=== PATIENT | male | born 1980 | race Caucasian/White ===

== ENCOUNTER 2017-12-12 23:10 | Emergency (ER) | payer OTHER ==
[2017-12-12 23:19] VITALS: BP 112/72; PULSE 114; TEMP 98; BMI 20.7
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
== END 2017-12-13 01:21 | disposition home or self-care (01) ==
LOC: JER 23:10
DX: F11.20 Opioid dependence, uncomplicated (principal); F14.20 Cocaine dependence, uncomplicated
CPT/HCPCS: 99281-25

== ENCOUNTER 2017-12-13 02:20 | Inpatient (IN) | payer OTHER ==
[2017-12-13 03:38] VITALS: BMI 20.9
--- NOTE | 2017-12-13 03:54 | HP ---
COWS - Scale Resting Pulse: 1= [place] 81-100 Sweatin=Flushed/Facial Moisture Restless Observation: 1= Difficult to Sit Still Pupil Size: 1= Pupils >than Normal Bone or Joint Aches: 4=Acute Joint/Muscle Pain Runny Nose/ Eye Tearin= None GI Upset > 30mins: 1= Stomach Cramp Tremor Observation: 2= Slight Tremor Visible Yawning Observation: 0= None Anxiety or Irritability: 4=Extreme Anxiety Goose Flesh Skin: 0=Smooth Skin COWS Score: 16 Admission [facility] Chief Complaint: Opiate withdrawal symptoms Allergies/Adverse Reactions: Allergies Allergy/AdvReac Type Severity Reaction Status Date / Time Cephalosporins Allergy Verified 12/13/17 03:31 History of Present Illness: 37 years old male with 10 years history of oxycodone dependence is seeking admission to detox. Patient reports that this is his first admission to detox and [facility]. He has medical history of diverticulitis, osteoarthritis, depression and anxiety. He denies suicide attempt and suicidal ideation at this time. He has left BKA with prothesis ankle bracelet on the left leg for alcohol probation Exam Limitations: No Limitations - Ebola screening Have you traveled outside of the country in the last 21 days: No Have you had contact with anyone from an Ebola affected area: No Have you been sick,other than usual withdrawal symptoms: No Do you have a fever: No - Review of Systems Constitutional: Chills, Loss of Appetite, Malaise, Night Sweats, Changes in sleep, Unintentional Wgt. Loss (reports 50lbs weight loss last 6 months) EENT: reports: No Symptoms Reported Respiratory: reports: No Symptoms reported Cardiac: reports: No Symptoms Reported GI: reports: Poor Appetite, Poor Fluid Intake, Abdominal cramping : reports: No Symptoms Reported Musculoskeletal: reports: Muscle Pain, Muscle Weakness Integumentary: reports: Dryness Neuro: reports: Tremors, Weakness Endocrine: reports: No Symptoms Reported Hematology: reports: No Symptoms Reported Psychiatric: reports: Orientated x3, Agitated, Anxious Other Systems: Reviewed and Negative Patient History - Patient Medical History Hx Anemia: No Hx Asthma: No Hx Chronic Obstructive Pulmonary Disease (COPD): No Hx Cancer: No Hx Cardiac Disorders: No Hx Congestive Heart Failure: No Hx Hypertension: No Hx Hypercholesterolemia: No Hx Pacemaker: No HX Cerebrovascular Accident: No Hx Seizures: No Hx Dementia: No Hx Diabetes: No Hx Gastrointestinal Disorders: Yes (Diverticulitis- Not on medication) Hx Liver Disease: No Hx Genitourinary Disorders: No Hx Sexually Transmitted Disorders: No Hx Renal Disease (ESRD): No Hx Thyroid Disease: No Hx Human Immunodeficiency Virus (HIV): No Hx Hepatitis C: No Hx Depression: Yes Hx Suicide Attempt: No (Denies suicide attempt and suicidal ideation at this time) Hx Bipolar Disorder: No Hx Schizophrenia: No Other Medical History: Osteoarthritis and anxiety - Patient Surgical History Past Surgical History: Yes Hx Orthopedic Surgery: Yes (Left BKA) - PPD History Previous Implant?: No Implanted On Prior R Admission?: No PPD to be Administered?: Yes - Reproductive History Patient is a Female of Child Bearing Age (11 -55 yrs old): No (Male) - Smoking Cessation Smoking history: Current every day smoker Have you smoked in the past 12 months: Yes Aproximately how many cigarettes per day: 10 Hx Chewing Tobacco Use: No Initiated information on smoking cessation: Yes 'Breaking Loose' booklet given: 12/13/17 - Substance & Tx. History Hx Alcohol Use: No Hx Substance Use: Yes Substance Use Type: Opiates Hx Substance Use Treatment: No (denies) - Substances Abused oxycodone Route: Oral Frequency: Daily Amount used: 30mg Age of first use: 27 Date of Last Use: 12/12/17 Cocaine Route: Smoking Frequency: Daily Amount used: $50 Age of first use: 26 Date of Last Use: 12/12/17 Family Disease History - Family Disease History Family Disease History: CA: Father (prostate - ) Admission Physical Exam S - Vital Signs Vital Signs: Vital Signs - 24 hr 12/13/17 03:36 Temperature 97 F L Pulse Rate 97 H Respiratory 20 Rate Blood Pressure 102/75 - Physical General Appearance: Yes: Moderate Distress HEENTM: Yes: Normal ENT Inspection, Normocephalic, Normal Voice, MIRIAM Respiratory: Yes: Lungs Clear, Normal Breath Sounds, No Respiratory Distress Neck: Yes: Supple Breast: Yes: Breast Exam Deferred Cardiology: Yes: Regular Rhythm, Regular Rate Abdominal: Yes: Normal Bowel Sounds Genitourinary: Yes: Within Normal Limits Back: Yes: Normal Inspection Musculoskeletal: Yes: Back pain Extremities: Yes: Tremors Neurological: Yes: Alert, Normal Mood/Affect Integumentary: Yes: Warm Lymphatic: Yes: Within Normal Limits - Diagnostic (1) Opioid dependence with withdrawal Current Visit: Yes Status: Chronic (2) Nicotine dependence Current Visit: Yes Status: Chronic (3) Osteoarthritis Current Visit: Yes Status: Chronic (4) Depression Current Visit: Yes Status: Chronic (5) Diverticulitis Current Visit: Yes Status: Chronic (6) History of left below knee amputation Current Visit: Yes Status: Chronic Cleared for Admission [facility] - Detox or Rehab [facility] Level of Care: Medically Managed Detox Regimen/Protocol: Methadone [facility] Breath Alcohol Content Breath Alcohol Content: 0 Urine Drug Screen - Results Drug Screen Negative: No Urine Drug Screen Results: VIOLETTA-Cocaine, OXY-Oxycodone
[2017-12-13] MEDS ORDERED: NICOTINE POLACRILEX 2 MG GUM BC PRN (04:15)
[2017-12-13] MEDS ORDERED: LOPERAMIDE HCL 2 MG CAPSULE PO PRN (04:15)
[2017-12-13] MEDS ORDERED: MAG HYDROX/AL HYDROX/SIMETH 30 ML UNIT-DOSE CUP PO PRN (04:15)
[2017-12-13] MEDS ORDERED: METHADONE HCL 10 MG TABLET (FOR DETOX USE ONLY) PO ONE ×3 (04:15→23:00)
[2017-12-13] MEDS ORDERED: MENTHOL/PHENOL 1 EACH UD MM PRN (04:15)
[2017-12-13] MEDS ORDERED: P-EPHED 60MG/TRIPROLIDI 2.5MG TABLET PO PRN (04:15)
[2017-12-13] MEDS ORDERED: MAGNESIUM CITRATE 300 ML BOTTLE PO PRN (04:15)
[2017-12-13] MEDS ORDERED: IBUPROFEN 400 MG TABLET (FP) PO PRN (04:15)
[2017-12-13] MEDS ORDERED: MAGNESIUM HYDROX 2400MG/30ML ORAL SUSPENSION 30 ML CUP PO PRN (04:15)
[2017-12-13] MEDS ORDERED: ACETAMINOPHEN 325 MG TABLET (FP) PO PRN (04:15)
--- NOTE | 2017-12-13 09:23 | EKG ---
Test Reason : Blood Pressure : / mmHG Vent. Rate : 099 BPM Atrial Rate : 099 BPM P-R Int : 162 ms QRS Dur : 090 ms QT Int : 378 ms P-R-T Axes : 071 074 065 degrees QTc Int : 485 ms NORMAL SINUS RHYTHM WITH SINUS ARRHYTHMIA PROLONGED QT ABNORMAL ECG NO PREVIOUS ECGS AVAILABLE Confirmed by MARY JO DUTTON, RADHA ([id number]) on 12/13/2017 9:22:58 AM Referred By: Confirmed By:RADHA CAMARGO MD
[2017-12-13 10:22] LABS: HEMATOCRIT 36.7 % (35.4-49); HEMOGLOBIN 12.6 GM/dL (11.7-16.9); MCHC 34.3 g/dl (32.0-35.9); MEAN CELL VOLUME 90.4 fl (80-96); MEAN PLT VOLUME 8.1 fl (7.5-11.1); PLATELET COUNT 296 K/MM3 (134-434); RBC 4.06 M/mm3 (4.00-5.60); RDW 13.7 % (11.9-15.9); WHITE BLOOD COUNT 6.8 K/mm3 (4.0-10.0)
[2017-12-13 10:38] LABS: CHLORIDE 107 mmol/L (98-107); POTASSIUM 3.5 mmol/L (3.5-5.1); SODIUM 144 mmol/L (136-145)
[2017-12-13] MEDS: PRENATAL VITAMINS W/ FOLIC ACID TABLET (FP) PO SCH (10:46)
[2017-12-13] MEDS: NICOTINE 14 MG/24 HOURS TOPICAL PATCH TD SCH (10:47)
[2017-12-13] MEDS: diazePAM 5 MG TABLET PO PRN ×3 (10:47→20:56)
[2017-12-13 11:08] LABS: ALBUMIN 3.4 g/dl (3.4-5.0); ALK PHOS 78 U/L (45-117); ANION GAP 8 (8-16); BILIRUBIN,TOTAL 0.6 mg/dL (0.2-1.0); BLOOD UREA NITROGEN 17 mg/dL (7-18); CALCIUM 8.8 mg/dL (8.5-10.1); CO2 29 mmol/L (21-32); GLUCOSE,RANDOM 99 mg/dL (74-106); SGOT/AST 14 U/L (15-37); SGPT/ALT 25 U/L (12-78); TOT PROT 6.4 g/dl (6.4-8.2)
--- NOTE | 2017-12-13 15:29 | PN ---
BHS COWS - Scale Resting Pulse: 1= SC 81-100 Sweatin= Chills/Flushing Restless Observation: 1= Difficult to Sit Still Pupil Size: 0= Normal to Room Light Bone or Joint Aches: 2= Severe Diffuse Aches Runny Nose/ Eye Tearin= Nasal Congestion GI Upset > 30mins: 0= None Tremor Observation of Outstretched Hands: 2= Slight Tremor Visible Yawning Observation: 2= >3x During Session Anxiety or Irritability: 2=Irritable/Anxious Goose Flesh Skin: 0=Smooth Skin COWS Score: 12 BHS Progress Note (SOAP) Subjective: Body Aches, Interrupted Sleep, Tremors, Sweating. Objective: PATIENT A & O X 3, OBSERVED AMBULATING ON UNIT. NO ACUTE DISTRESS. 12/13/17 15:28 Vital Signs Temperature 98.7 F 12/13/17 15:02 Pulse Rate 91 H 12/13/17 15:02 Respiratory Rate 20 12/13/17 15:02 Blood Pressure 104/71 12/13/17 15:02 O2 Sat by Pulse Oximetry (%) Laboratory Tests 12/13/17 12/13/17 12/13/17 08:00 08:00 08:00 WBC 6.8 RBC 4.06 Hgb 12.6 Hct 36.7 MCV 90.4 MCH 31.0 MCHC 34.3 RDW 13.7 Plt Count 296 MPV 8.1 Sodium 144 Potassium 3.5 Chloride 107 Carbon Dioxide 29 Anion Gap 8 BUN 17 Creatinine 1.0 Creat Clearance w eGFR > 60 Random Glucose 99 Calcium 8.8 Total Bilirubin 0.6 AST 14 L ALT 25 Alkaline Phosphatase 78 Total Protein 6.4 Albumin 3.4 RPR Titer HIV 1&2 Antibody Screen Negative HIV P24 Antigen Negative 12/13/17 08:00 WBC RBC Hgb Hct MCV MCH MCHC RDW Plt Count MPV Sodium Potassium Chloride Carbon Dioxide Anion Gap BUN Creatinine Creat Clearance w eGFR Random Glucose Calcium Total Bilirubin AST ALT Alkaline Phosphatase Total Protein Albumin RPR Titer Nonreactive HIV 1&2 Antibody Screen HIV P24 Antigen LABS NOTED. UA RESULTS PENDING. Assessment: 12/13/17 15:28 WITHDRAWAL SYMPTOMS. Plan: CONTINUE DETOX. PRN FLEXERIL FOR BODY ACHES / MUSCLE SPASMS.
[2017-12-13] MEDS: guaiFENesin/D-METHORPHAN HB 10 ML UNIT-DOSE CUPS PO PRN (20:53)
--- NOTE | 2017-12-13 21:35 | PN ---
S Progress Note (SOAP) Subjective: Patient complained of shortness of breath and reports being very anxious. He is alert and oriented x 3. Objective: 12/13/17 21:33 Vital Signs Temperature 96.1 F L 12/13/17 21:24 Pulse Rate 141 H 12/13/17 21:24 Respiratory Rate 16 12/13/17 21:24 Blood Pressure 117/81 12/13/17 21:24 O2 Sat by Pulse Oximetry (%) 89% RA Laboratory Last Values WBC 6.8 K/mm3 (4.0-10.0) 12/13/17 08:00 RBC 4.06 M/mm3 (4.00-5.60) 12/13/17 08:00 Hgb 12.6 GM/dL (11.7-16.9) 12/13/17 08:00 Hct 36.7 % (35.4-49) 12/13/17 08:00 MCV 90.4 fl (80-96) 12/13/17 08:00 MCH 31.0 pg (25.7-33.7) 12/13/17 08:00 MCHC 34.3 g/dl (32.0-35.9) 12/13/17 08:00 RDW 13.7 % (11.9-15.9) 12/13/17 08:00 Plt Count 296 K/MM3 (134-434) 12/13/17 08:00 MPV 8.1 fl (7.5-11.1) 12/13/17 08:00 Sodium 144 mmol/L (136-145) 12/13/17 08:00 Potassium 3.5 mmol/L (3.5-5.1) 12/13/17 08:00 Chloride 107 mmol/L (98-107) 12/13/17 08:00 Carbon Dioxide 29 mmol/L (21-32) 12/13/17 08:00 Anion Gap 8 (8-16) 12/13/17 08:00 BUN 17 mg/dL (7-18) 12/13/17 08:00 Creatinine 1.0 mg/dL (0.7-1.3) 12/13/17 08:00 Creat Clearance w eGFR > 60 (>60) 12/13/17 08:00 Random Glucose 99 mg/dL (74-106) 12/13/17 08:00 Calcium 8.8 mg/dL (8.5-10.1) 12/13/17 08:00 Total Bilirubin 0.6 mg/dL (0.2-1.0) 12/13/17 08:00 AST 14 U/L (15-37) L 12/13/17 08:00 ALT 25 U/L (12-78) 12/13/17 08:00 Alkaline Phosphatase 78 U/L (45-117) 12/13/17 08:00 Total Protein 6.4 g/dl (6.4-8.2) 12/13/17 08:00 Albumin 3.4 g/dl (3.4-5.0) 12/13/17 08:00 RPR Titer Nonreactive (NONREACTIVE) 12/13/17 08:00 HIV 1&2 Antibody Screen Negative 12/13/17 08:00 HIV P24 Antigen Negative 12/13/17 08:00 Labs reviewed 12/13/17 21:41 Assessment: 12/13/17 21:38 Anxiety Withdrawal symptoms Plan: Oxygen at 2 liters per minute via nasal cannula EKG stat- Sinus rhythm with marked sinus arrhythmia. Otherwise normal ECG Valium 10mg tablet oral
[2017-12-13] MEDS: CYCLOBENZAPRINE HCL 10 MG TABLET (FP) PO PRN (22:46)
[2017-12-13] MEDS: THIAMINE HCL 100 MG TABLET (FP) PO SCH (22:46)
[2017-12-13] MEDS: MELATONIN 5 MG TABLETS PO PRN (22:47)
[2017-12-14] MEDS ORDERED: ALBUTEROL SO4 2.5/IPRATROPIUM 0.5 INH SOL 3 ML VIAL.NEB. NEB PRN (03:48)
--- NOTE | 2017-12-14 04:57 | PN ---
[facility] Progress Note Note: Patient has difficulty breathing, tachycardia and tachypnea. Treatment with duoneb did not show any improvement. Patient is to be sent to ER for further evaluation. Endorsed to Dr armstrong.
--- NOTE | 2017-12-14 08:57 | CONSULT ---
[facility] Psychiatric Consult - Data Date of interview: 12/14/17
[2017-12-14] MEDS ORDERED: METHADONE HCL 10 MG TABLET (FOR DETOX USE ONLY) PO ONE ×2 (10:00→12:00)
[2017-12-14] MEDS: NICOTINE 14 MG/24 HOURS TOPICAL PATCH TD SCH (10:56)
[2017-12-14] MEDS: PRENATAL VITAMINS W/ FOLIC ACID TABLET (FP) PO SCH (10:56)
[2017-12-14] MEDS: diazePAM 5 MG TABLET PO PRN ×2 (11:47→17:52)
--- NOTE | 2017-12-14 11:49 | PN ---
[facility] COWS - Scale Resting Pulse: 2= WI 101-120 Sweatin= Chills/Flushing Restless Observation: 3= Extraneous Movement Pupil Size: 0= Normal to Room Light Bone or Joint Aches: 1= Mild Discomfort Runny Nose/ Eye Tearin= Nasal Congestion GI Upset > 30mins: 0= None Tremor Observation of Outstretched Hands: 2= Slight Tremor Visible Yawning Observation: 1= 1-2x During Session Anxiety or Irritability: 2=Irritable/Anxious Goose Flesh Skin: 0=Smooth Skin COWS Score: 13 BHS Progress Note (SOAP) Subjective: ANXIETY,SWEATS/CHILLS, PT IS OOB AMBULATING ON UNIT AFTER RETURN FROM ER. PT ASKING "WHY DID I HAVE TO GO TO THE ER? I WAS JUST SLEEPING. I HAVE SLEEP APNEA , THAT'S ALL". DENIES SOB OR DISCOMFORT. PT SEEN BY THE DOOR OF THE COUNSELOR' S OFFICE IN RM [id number] ON THE PHONE WITH HIS . PT REQUESTING FOR HIS METHADONE DOSE. Objective: 12/14/17 14:03 Vital Signs 12/14/17 13:55 Temperature 976.6 F H Pulse Rate 100 H Respiratory 20 Rate Blood Pressure 116/68 Laboratory Tests 12/13/17 12/13/17 12/13/17 08:00 08:00 08:00 WBC 6.8 RBC 4.06 Hgb 12.6 Hct 36.7 MCV 90.4 MCH 31.0 MCHC 34.3 RDW 13.7 Plt Count 296 MPV 8.1 Sodium 144 Potassium 3.5 Chloride 107 Carbon Dioxide 29 Anion Gap 8 BUN 17 Creatinine 1.0 Creat Clearance w eGFR > 60 Random Glucose 99 Calcium 8.8 Total Bilirubin 0.6 AST 14 L ALT 25 Alkaline Phosphatase 78 Total Protein 6.4 Albumin 3.4 RPR Titer HIV 1&2 Antibody Screen Negative HIV P24 Antigen Negative 12/13/17 08:00 WBC RBC Hgb Hct MCV MCH MCHC RDW Plt Count MPV Sodium Potassium Chloride Carbon Dioxide Anion Gap BUN Creatinine Creat Clearance w eGFR Random Glucose Calcium Total Bilirubin AST ALT Alkaline Phosphatase Total Protein Albumin RPR Titer Nonreactive HIV 1&2 Antibody Screen HIV P24 Antigen LUNGS CLEAR , NO WHEEZING OR RHONCHI. Assessment: 12/14/17 14:03 WITHDRAWAL SX Plan: CONTINUE DETOX METHADONE 20 MG PO ONCE ORDERED.
--- NOTE | 2017-12-14 11:55 | PN ---
[facility] Progress Note Note: Patient was not available in he unit, I was told by nurse staff [facility] patient was transferred to [facility], [place]
[2017-12-14] MEDS: CYCLOBENZAPRINE HCL 10 MG TABLET (FP) PO PRN ×2 (12:35→22:44)
--- NOTE | 2017-12-14 13:26 | EKG ---
Test Reason : Blood Pressure : / mmHG Vent. Rate : 094 BPM Atrial Rate : 094 BPM P-R Int : 156 ms QRS Dur : 088 ms QT Int : 350 ms P-R-T Axes : 066 064 058 degrees QTc Int : 437 ms SINUS RHYTHM WITH MARKED SINUS ARRHYTHMIA OTHERWISE NORMAL ECG WHEN COMPARED WITH ECG OF 13-DEC-2017 04:51, NO SIGNIFICANT CHANGE WAS FOUND Confirmed by RADHA CAMARGO MD ([id number]) on 12/14/2017 1:26:29 PM Referred By: Confirmed By:RADHA CAMARGO MD
[2017-12-14] MEDS: guaiFENesin/D-METHORPHAN HB 10 ML UNIT-DOSE CUPS PO PRN (18:51)
[2017-12-14] MEDS: THIAMINE HCL 100 MG TABLET (FP) PO SCH (22:43)
[2017-12-14] MEDS: MELATONIN 5 MG TABLETS PO PRN (22:44)
[2017-12-15] MEDS: diazePAM 5 MG TABLET PO PRN ×5 (05:52→22:16)
[2017-12-15] MEDS: guaiFENesin/D-METHORPHAN HB 10 ML UNIT-DOSE CUPS PO PRN (05:52)
[2017-12-15] MEDS: CYCLOBENZAPRINE HCL 10 MG TABLET (FP) PO PRN ×2 (08:53→22:16)
[2017-12-15] MEDS: PRENATAL VITAMINS W/ FOLIC ACID TABLET (FP) PO SCH (09:25)
[2017-12-15] MEDS ORDERED: METHADONE HCL 5 MG TABLET (FOR DETOX USE ONLY) PO ONE (10:00)
[2017-12-15] MEDS: NICOTINE 14 MG/24 HOURS TOPICAL PATCH TD SCH (10:32)
[2017-12-15] MEDS: ALBUTEROL SO4 2.5/IPRATROPIUM 0.5 INH SOL 3 ML VIAL.NEB. NEB SCH ×3 (11:11→21:36)
--- NOTE | 2017-12-15 13:41 | PN ---
[facility] Progress Note (SOAP) Subjective: ALERT O X 3. ANXIETY, SWEATS, FATIGUE SLIGHT SOB WITH NAD. Objective: 12/15/17 13:39 Vital Signs 12/15/17 12/15/17 06:12 09:08 Temperature 97.1 F L 98.1 F Pulse Rate 90 104 H Respiratory 18 18 Rate Blood Pressure 110/70 111/72 Laboratory Tests 12/13/17 12/13/17 12/13/17 08:00 08:00 08:00 WBC 6.8 RBC 4.06 Hgb 12.6 Hct 36.7 MCV 90.4 MCH 31.0 MCHC 34.3 RDW 13.7 Plt Count 296 MPV 8.1 Sodium 144 Potassium 3.5 Chloride 107 Carbon Dioxide 29 Anion Gap 8 BUN 17 Creatinine 1.0 Creat Clearance w eGFR > 60 Random Glucose 99 Calcium 8.8 Total Bilirubin 0.6 AST 14 L ALT 25 Alkaline Phosphatase 78 Total Protein 6.4 Albumin 3.4 RPR Titer HIV 1&2 Antibody Screen Negative HIV P24 Antigen Negative 12/13/17 08:00 WBC RBC Hgb Hct MCV MCH MCHC RDW Plt Count MPV Sodium Potassium Chloride Carbon Dioxide Anion Gap BUN Creatinine Creat Clearance w eGFR Random Glucose Calcium Total Bilirubin AST ALT Alkaline Phosphatase Total Protein Albumin RPR Titer Nonreactive HIV 1&2 Antibody Screen HIV P24 Antigen LUNGS; BILATERAL WHEEZING ITH SCATTERED RHONCHI. Assessment: 12/15/17 13:40 WITHDRAWAL SX Plan: CONTINUE DETOX PULSE OX QID BEFORE RESP. TX.
[2017-12-15] MEDS: THIAMINE HCL 100 MG TABLET (FP) PO SCH (22:16)
[2017-12-16] MEDS: ALBUTEROL SO4 2.5/IPRATROPIUM 0.5 INH SOL 3 ML VIAL.NEB. NEB SCH ×2 (08:12→12:10)
[2017-12-16 09:09] VITALS: BP 114/68; PULSE 103; TEMP 96.8
[2017-12-16] MEDS ORDERED: METHADONE HCL 5 MG TABLET (FOR DETOX USE ONLY) PO ONE (10:00)
[2017-12-16] MEDS: CYCLOBENZAPRINE HCL 10 MG TABLET (FP) PO PRN (10:09)
[2017-12-16] MEDS: PRENATAL VITAMINS W/ FOLIC ACID TABLET (FP) PO SCH (10:09)
[2017-12-16] MEDS: NICOTINE 14 MG/24 HOURS TOPICAL PATCH TD SCH (10:11)
--- NOTE | 2017-12-16 12:26 | PN ---
[facility] Progress Note (SOAP) Subjective: PT REPORTS NOW THAT HE HAS APPOINTMENT TO GO FOR SURGERY FOR UMBILICAL HERNIA WITH HIS DOCTOR(NAME UNKNOWN TO [facility]) AND WOULD LIKE TO LEAVE NOW. ALERT O X 3. NAD. Objective: 12/16/17 12:24 Vital Signs 12/16/17 12/16/17 12/16/17 06:12 06:30 09:08 Temperature 96.1 F L 96.8 F L Pulse Rate 99 H 103 H Respiratory 18 18 16 Rate Blood Pressure 123/79 114/68 Laboratory Tests 12/13/17 12/13/17 12/13/17 08:00 08:00 08:00 WBC 6.8 RBC 4.06 Hgb 12.6 Hct 36.7 MCV 90.4 MCH 31.0 MCHC 34.3 RDW 13.7 Plt Count 296 MPV 8.1 Sodium 144 Potassium 3.5 Chloride 107 Carbon Dioxide 29 Anion Gap 8 BUN 17 Creatinine 1.0 Creat Clearance w eGFR > 60 Random Glucose 99 Calcium 8.8 Total Bilirubin 0.6 AST 14 L ALT 25 Alkaline Phosphatase 78 Total Protein 6.4 Albumin 3.4 RPR Titer HIV 1&2 Antibody Screen Negative HIV P24 Antigen Negative 12/13/17 08:00 WBC RBC Hgb Hct MCV MCH MCHC RDW Plt Count MPV Sodium Potassium Chloride Carbon Dioxide Anion Gap BUN Creatinine Creat Clearance w eGFR Random Glucose Calcium Total Bilirubin AST ALT Alkaline Phosphatase Total Protein Albumin RPR Titer Nonreactive HIV 1&2 Antibody Screen HIV P24 Antigen Assessment: 12/16/17 12:25 NAD Plan: PT SIGNED OUT AMA. F/U WITH PMD FOR MEDICAL MANAGEMENT
--- NOTE | 2017-12-16 12:28 | DS ---
[facility] Detox Discharge Summary Admission Date: 12/13/17 Discharge Date: 12/16/17 - History Present History: Opioid Dependence Additional Comments: PT SIGNED OUT AMA. Pertinent Past History: PLEASE SEE DX BELOW - Physical Exam Results Vital Signs: Vital Signs Temperature 96.8 F L 12/16/17 09:08 Pulse Rate 103 H 12/16/17 09:08 Respiratory Rate 16 12/16/17 09:08 Blood Pressure 114/68 12/16/17 09:08 O2 Sat by Pulse Oximetry (%) Pertinent Admission Physical Exam Findings: WITHDRAWAL SX Laboratory Tests 12/13/17 12/13/17 12/13/17 08:00 08:00 08:00 WBC 6.8 RBC 4.06 Hgb 12.6 Hct 36.7 MCV 90.4 MCH 31.0 MCHC 34.3 RDW 13.7 Plt Count 296 MPV 8.1 Sodium 144 Potassium 3.5 Chloride 107 Carbon Dioxide 29 Anion Gap 8 BUN 17 Creatinine 1.0 Creat Clearance w eGFR > 60 Random Glucose 99 Calcium 8.8 Total Bilirubin 0.6 AST 14 L ALT 25 Alkaline Phosphatase 78 Total Protein 6.4 Albumin 3.4 RPR Titer HIV 1&2 Antibody Screen Negative HIV P24 Antigen Negative 12/13/17 08:00 WBC RBC Hgb Hct MCV MCH MCHC RDW Plt Count MPV Sodium Potassium Chloride Carbon Dioxide Anion Gap BUN Creatinine Creat Clearance w eGFR Random Glucose Calcium Total Bilirubin AST ALT Alkaline Phosphatase Total Protein Albumin RPR Titer Nonreactive HIV 1&2 Antibody Screen HIV P24 Antigen - Treatment Hospital Course: Discharged Condition Good - Medication Discharge Medications: Ambulatory Orders Atomoxetine HCl [Strattera -] 40 mg PO DAILY 12/13/17 Duloxetine HCl [Cymbalta -] 30 mg PO DAILY 12/13/17 Mirtazapine [Remeron -] 15 mg PO HS 12/13/17 - Diagnosis (1) History of left below knee amputation Status: Chronic (2) Nicotine dependence Status: Acute Qualifiers: Nicotine product type: cigarettes Substance use status: in withdrawal Qualified Code(s): F17.213 - Nicotine dependence, cigarettes, with withdrawal (3) Osteoarthritis Status: Chronic Qualifiers: Osteoarthritis location: unspecified site Osteoarthritis type: unspecified Qualified Code(s): M19.90 - Unspecified osteoarthritis, unspecified site (4) Opioid dependence with withdrawal Status: Acute (5) History of umbilical hernia Status: Chronic - AMA Did Patient Leave Against Medical Advice: Yes (AMA)
[2017-12-17] MEDS ORDERED: METHADONE HCL 10 MG TABLET (FOR DETOX USE ONLY) PO ONE (10:00)
[2017-12-18] MEDS ORDERED: METHADONE HCL 5 MG TABLET (FOR DETOX USE ONLY) PO ONE (06:00)
== END 2017-12-16 12:42 | disposition left against medical advice (07) | DRG 894 ==
LOC: YASAS 02:20 → Y3N 03:21
PROVIDERS: ADMIT Internal Medicine; ATTEND Internal Medicine
PROC: HZ2ZZZZ Detoxification Services for Substance Abuse Treatment (ICD-10-PCS; principal; 2017-12-13)
DX: F11.23 Opioid dependence with withdrawal (principal); F14.20 Cocaine dependence, uncomplicated; K57.92 Diverticulitis of intestine, part unspecified, without perforation or abscess without bleeding; F17.213 Nicotine dependence, cigarettes, with withdrawal; F32.9 Major depressive disorder, single episode, unspecified; F41.9 Anxiety disorder, unspecified; Z89.512 Acquired absence of left leg below knee; M19.90 Unspecified osteoarthritis, unspecified site; R06.2 Wheezing; R00.0 Tachycardia, unspecified; R06.82 Tachypnea, not elsewhere classified; I49.9 Cardiac arrhythmia, unspecified; K42.9 Umbilical hernia without obstruction or gangrene
CPT/HCPCS: 36415; 80053; 85027; 86593; 87389; 93005; 93010; 94640; J7620

== ENCOUNTER 2017-12-14 05:45 | Emergency (ER) | payer OTHER ==
[2017-12-14] MEDS ORDERED: ALBUTEROL SO4 2.5/IPRATROPIUM 0.5 INH SOL 3 ML VIAL.NEB. NEB ONE (05:54)
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
[2017-12-14] MEDS ORDERED: NALOXONE HCL 0.4 MG/ML VIAL IVPUSH ONE (06:03)
[2017-12-14 06:13] VITALS: BMI 23.6
--- NOTE | 2017-12-14 09:56 | PDOC ---
*Physical Exam - Vital Signs Last Vital Signs Temp Pulse Resp BP Pulse Ox 98.7 F 91 H 18 115/80 100 12/14/17 06:09 12/14/17 06:09 12/14/17 06:09 12/14/17 06:09 12/14/17 06:09 - Physical Exam Comments: 12/14/17 09:53 Pt signed out to me at 7am by overnight attending. Pt pending CXR at signout time, well appearing, satting 97% while sleeping at this time Pt feels well, lungs are clear, is asymtpomatic, ambulating in ED asking to go back to [facility] CXR clear Results explained to pt, stable for transfer to [facility] ED Treatment Course - RADIOLOGY Radiology Studies Ordered: Category Date Time Status CHEST X-RAY PORTABLE* [RAD] Stat Radiology 12/14/17 09:27 Taken - Medications Given in the ED: ED Medications Discontinued Medications Generic Name Dose Route Start Last Admin Trade Name Freq PRN Reason Stop Dose Admin Albuterol/Ipratropium 1 amp 12/14/17 05:54 12/14/17 06:18 Duoneb - NEB 12/14/17 05:55 1 amp ONCE ONE Administration Naloxone HCl 0.4 mg 12/14/17 06:03 12/14/17 06:22 Narcan - IVPUSH 12/14/17 06:04 0.4 mg ONCE ONE Administration *DC/Admit/Observation/Transfer Diagnosis at time of Disposition: Shortness of breath - Discharge Dispostion Disposition: TRANSFER ACUTE CARE/OTHER HOSP Condition at time of disposition: Stable - Referrals Referrals: Wild Asencio [Primary Care Provider] - - Patient Instructions Printed Discharge Instructions: DI for Shortness of Breath Additional Instructions: Follow up with your primary doctor within 1 week. Return to the emergency department if you have any new, worsening or concerning symptoms. - Post Discharge Activity - Attestations Physician Attestion: 12/14/17 09:55 I, Dr. Fawad Tran MD, attest that this document has been prepared under my direction and personally reviewed by me in its entirety. I further attest, that it accurately reflects all work, treatment, procedures and medical decision -making performed by me.
[2017-12-14 11:08] VITALS: BP 120/72; PULSE 98; TEMP 98
== END 2017-12-14 11:03 | disposition short-term general hospital (02) ==
LOC: JER 05:45
PROC: 3E0F7GC Introduction of Other Therapeutic Substance into Respiratory Tract, Via Natural or Artificial Opening (ICD-10-PCS; principal; 2017-12-14)
PROC: 3E033GC Introduction of Other Therapeutic Substance into Peripheral Vein, Percutaneous Approach (ICD-10-PCS; 2017-12-14)
DX: R06.02 Shortness of breath (principal); F11.23 Opioid dependence with withdrawal
CPT/HCPCS: 71045-TC-FY; 99283-25; J7620

== ENCOUNTER 2021-03-14 19:56 | Emergency (ER) | payer OTHER ==
[2021-03-14 20:31] VITALS: BMI 27.2
[2021-03-14] MEDS ORDERED: chlordiazePOXIDE HCL 25 MG CAPSULE PO ONE (21:46)
[2021-03-14 21:49] LABS: BASO % 0.7 % (0-2.0); EOS % 2.7 % (0-4.5); HEMATOCRIT 43.9 % (35.4-49); HEMOGLOBIN 14.8 GM/dL (11.7-16.9); LYMPH % 31.8 % (8-40); MCH 32.2 pg (25.7-33.7); MCHC 33.8 g/dl (32.0-35.9); MEAN CELL VOLUME 95.2 fl (80-96); MEAN PLT VOLUME 7.1 fl (7.5-11.1); MONO % 8.1 % (3.8-10.2); NEUT % 56.7 % (42.8-82.8); PLATELET COUNT 268 10^3/uL (134-434); RBC 4.61 M/mm3 (4.00-5.60); RDW 13.8 % (11.9-15.9); WHITE BLOOD COUNT 6.6 K/mm3 (4.0-10.0)
[2021-03-14 22:09] LABS: URINE BARBITURATES NEGATIVE (NEGATIVE)
[2021-03-14 22:10] LABS: COCAINE, UR NEGATIVE (NEGATIVE); OPIATES, URI NEGATIVE (NEGATIVE); URINE AMPHETAMINES NEGATIVE (NEGATIVE)
[2021-03-14 22:12] LABS: PHENCYCLIDINE,URINE NEGATIVE (NEGATIVE)
[2021-03-14 22:17] LABS: CALCIUM 8.8 mg/dL (8.5-10.1)
[2021-03-14 22:18] LABS: ALBUMIN 3.6 g/dl (3.4-5.0); BLOOD UREA NITROGEN 14.2 mg/dL (7-18)
[2021-03-14 22:21] LABS: CREATININE 0.8 mg/dL (0.55-1.3)
[2021-03-14 22:22] LABS: BILIRUBIN,TOTAL 0.2 mg/dL (0.2-1)
[2021-03-14 22:23] LABS: TOT PROT 7.4 g/dl (6.4-8.2)
[2021-03-14 22:25] LABS: METHADONE, UR NEGATIVE (NEGATIVE); URINE BENZODIAZEPINES NEGATIVE (NEGATIVE)
[2021-03-14] MEDS ORDERED: LORazepam 1 MG TABLET PO ONE (22:25)
[2021-03-14] MEDS ORDERED: LORazepam 1 MG TABLET ONE (22:30)
[2021-03-15 00:08] VITALS: BP 122/77; PULSE 103; TEMP 98.9
== END 2021-03-15 00:19 | disposition home or self-care (01) ==
LOC: JER 19:56
DX: F10.230 Alcohol dependence with withdrawal, uncomplicated (principal)
CPT/HCPCS: 36415; 80053; 80307; 85025; 93005; 93010; 99284-25; C9803; U0003; U0005